=== PATIENT | female | born 1940 | race Caucasian/White ===

== ENCOUNTER 2018-05-06 10:14 | Inpatient (IN) | payer OTHER ==
[~2018-05-06 10:14] MED LIST: EPHEDrine SULFATE 50 MG/5 ML SYG; LACTATED RINGER'S 1,000 ML IV*; metroNIDAZOLE 500 MG/NS (PMX) 100 ML IVPB
[2018-05-06] MEDS ORDERED: MIDAZOLAM 1 MG/ML 2 ML INJ (13:00)
[2018-05-06] MEDS ORDERED: FENTAnyl 50 MCG/ML VIAL (13:00)
[2018-05-06] MEDS ORDERED: PROPOFOL 20 ML (13:00)
[2018-05-06] MEDS ORDERED: CEFAZOLIN 1 GM INJ (13:00)
[2018-05-06] MEDS ORDERED: metroNIDAZOLE 500 MG/NS (PMX) 100 ML IVPB ×2 (13:00→16:00)
[2018-05-06] MEDS ORDERED: ROCURONIUM 50 MG INJ ×2 (13:00→15:11)
[2018-05-06] MEDS ORDERED: ROPIVACAINE 0.2% 20 ML VIAL (13:03)
[2018-05-06] MEDS ORDERED: HYDROCORTISONE 100 MG INJ (13:21)
[2018-05-06] MEDS ORDERED: PHENYLephrine (100 MCG/ML) 10ML SYG ×2 (13:29→15:08)
[2018-05-06] MEDS ORDERED: METOCLOPRAMIDE 10 MG INJ (14:14)
[2018-05-06] MEDS ORDERED: ONDANSETRON 4 MG INJ (14:14)
[2018-05-06] MEDS ORDERED: DEXAMETHASONE 4 MG/ML 5 ML INJ (14:14)
[2018-05-06] MEDS ORDERED: FENTAnyl 50 MCG/ML VIAL IV ×2 (14:30)
[2018-05-06] MEDS ORDERED: NALBUPHINE HCL (10 MG/1 ML) INJ IV (14:30)
[2018-05-06] MEDS ORDERED: DIPHENHYDRAMINE 50 MG INJ IV ×3 (14:30→16:00)
[2018-05-06] MEDS ORDERED: morphine 2 MG INJ IV ×2 (14:30)
[2018-05-06] MEDS ORDERED: LABETALOL HCL 20MG INJ IV (14:30)
[2018-05-06] MEDS ORDERED: HYDROmorphONE 0.5 MG/0.5 ML SYG IV ×2 (14:30)
[2018-05-06] MEDS ORDERED: hydrALAzine 20 MG INJ IV (14:30)
[2018-05-06] MEDS ORDERED: ALBUMIN HUMAN 5% 250 ML IV (14:30)
[2018-05-06] MEDS ORDERED: MEPERIDINE 25 MG INJ IV (14:30)
[2018-05-06] MEDS ORDERED: HYDROmorphONE 1 MG/5 ML IV SYRINGE IV (14:30)
[2018-05-06] MEDS ORDERED: NALOXONE (0.4 MG/ML) INJ IV (14:30)
[2018-05-06] MEDS ORDERED: METOCLOPRAMIDE 10 MG INJ IV (14:30)
[2018-05-06] MEDS ORDERED: HETASTARCH 6% NACL 500 ML (15:07)
[2018-05-06] MEDS ORDERED: SUGAMMADEX SODIUM 200 MG/2 ML VIAL IV (15:34)
[2018-05-06] MEDS ORDERED: D5W-0.45 NACL + KCL 10 MEQ 1,000 ML IV (15:35)
[2018-05-06] MEDS ORDERED: ONDANSETRON 4 MG INJ IV (16:00)
[2018-05-06] MEDS ORDERED: LORAZEPAM 2 MG INJ IV (16:00)
[2018-05-06] MEDS ORDERED: CEFAZOLIN 2 GM/50 ML (PMX) 50 ML IVPB (16:00)
[2018-05-06 16:14] LABS: HEMATOCRIT 28.1 % (37.0-47.0); HEMOGLOBIN 8.9 g/dl (12.0-16.0)
[2018-05-06 16:33] LABS: ANION GAP 10 (5-13); BLOOD UREA NITROGEN 7 mg/dl (7-20); CARBON DIOXIDE 23 mmol/L (21-31); CHLORIDE 104 mmol/L (97-110); CREATININE 0.57 mg/dl (0.44-1.00); GLUCOSE 103 mg/dl (70-220); POTASSIUM 3.6 mmol/L (3.5-5.1); SODIUM 137 mmol/L (135-144)
[2018-05-06 16:36] LABS: CALCIUM 8.1 mg/dl (8.4-10.2)
[2018-05-06] MEDS: EPHEDrine SULFATE 50 MG/5 ML SYG IV (16:43)
[2018-05-06] MEDS ORDERED: BUPIVACAINE 0.25% (MPF) 30 ML INJ INJ (17:00)
[2018-05-06] MEDS: HYDROmorphONE 1 MG/5 ML IV SYRINGE IV (17:04)
[2018-05-06] MEDS: ONDANSETRON 4 MG INJ IV (17:04)
[2018-05-06] MEDS: ACETAMINOPHEN 1000MG/100ML IV 100 ML IVPB ×2 (17:14→22:47)
[2018-05-06] MEDS: D5W-0.45 NACL + KCL 20 MEQ 1,000 ML IV (18:28)
[2018-05-06] MEDS: metroNIDAZOLE 500 MG/NS (PMX) 100 ML IVPB (21:28)
[2018-05-06] MEDS: NIACIN 500 MG TAB PO (21:28)
[2018-05-06] MEDS: ESCITALOPRAM 10 MG TAB PO (23:11)
[2018-05-06] MEDS: METHYLPREDNISOLONE 125 MG INJ IV (23:15)
[2018-05-07] MEDS: CEFAZOLIN 2 GM/50 ML (PMX) 50 ML IVPB ×3 (01:45→17:36)
[2018-05-07] MEDS: ACETAMINOPHEN 1000MG/100ML IV 100 ML IVPB ×3 (03:56→16:19)
[2018-05-07] MEDS: D5W-0.45 NACL + KCL 20 MEQ 1,000 ML IV ×3 (03:58→17:36)
[2018-05-07 05:23] LABS: ADD MAN DIFF? NO
[2018-05-07 05:26] LABS: WHITE BLOOD COUNT 18.3 10^3/ul (4.8-10.8)
[2018-05-07 05:26] LABS: ABNORMAL IP MESSAGE 1; BASOPHILS % 0.1 % (0.0-2.0); HEMATOCRIT 26.5 % (37.0-47.0); HEMOGLOBIN 8.4 g/dl (12.0-16.0); LYMPHOCYTES # 0.2 10^3/ul (0.8-2.9); LYMPHOCYTES % 1.1 % (15.0-51.0); MEAN CORPUSCULAR HEMOGLOBIN 30.4 pg (29.0-33.0); MEAN CORPUSCULAR HGB CONC 31.7 g/dl (32.0-37.0); MEAN PLATELET VOLUME 9.6 fl (7.4-10.4); MONOCYTE # 0.7 10^3/ul (0.3-0.9); MONOCYTES % 3.9 % (0.0-11.0); NEUTROPHIL # 17.3 10^3/ul (1.6-7.5); NEUTROPHILS % 94.6 % (39.0-77.0); PLATELET COUNT 263 10^3/UL (140-415); RED BLOOD COUNT 2.76 10^6/ul (4.20-5.40); RED CELL DISTRIBUTION WIDTH 17.4 % (11.5-14.5)
[2018-05-07 05:43] LABS: ANION GAP 5 (5-13); BLOOD UREA NITROGEN 6 mg/dl (7-20); CALCIUM 8.1 mg/dl (8.4-10.2); CARBON DIOXIDE 24 mmol/L (21-31); CHLORIDE 104 mmol/L (97-110); CREATININE 0.53 mg/dl (0.44-1.00); GLUCOSE 178 mg/dl (70-220); POSITIVE DIFF @See below; POTASSIUM 4.1 mmol/L (3.5-5.1); SODIUM 133 mmol/L (135-144)
[2018-05-07 05:45] LABS: INR 1.02; PROTIME 13.5 Sec (11.9-14.9); PT RATIO 1.1
[2018-05-07] MEDS: PANTOPRAZOLE (EC) 40 MG TAB PO (06:07)
[2018-05-07] MEDS: metroNIDAZOLE 500 MG/NS (PMX) 100 ML IVPB ×2 (06:07→13:35)
[2018-05-07] MEDS: LEVOTHYROXINE 75 MCG TAB PO (06:07)
[2018-05-07] MEDS ORDERED: predniSONE INTENSOL (5 MG/ML PO SYG) PO (09:00)
[2018-05-07] MEDS: NIACIN 500 MG TAB PO ×2 (09:50→20:20)
[2018-05-07] MEDS: CYANOCOBALAMIN 500 MCG TAB PO (09:50)
[2018-05-07] MEDS: BUPROPION (SR) 150 MG TAB PO (09:50)
[2018-05-07] MEDS: LOSARTAN 50 MG TAB PO (09:51)
[2018-05-07] MEDS: CHOLECALCIFEROL 1,000 UNIT TAB PO (09:51)
[2018-05-07] MEDS: predniSONE 5 MG TAB PO (09:51)
[2018-05-07] MEDS: ESCITALOPRAM 10 MG TAB PO (09:51)
[2018-05-07] MEDS: LORATADINE 10 MG TAB PO (09:51)
[2018-05-07] MEDS: predniSONE 1 MG TAB PO (09:57)
[2018-05-07] MEDS: OXYCODONE/ACETAMINOPHEN (5/325) TAB PO ×2 (10:00→20:22)
[2018-05-07] MEDS: ENOXAPARIN 30 MG/0.3 ML SYG SC (13:36)
[2018-05-08 05:28] LABS: ADD MAN DIFF? NO
[2018-05-08 05:39] LABS: BASOPHILS % 0.1 % (0.0-2.0); HEMOGLOBIN 7.1 g/dl (12.0-16.0); LYMPHOCYTES # 0.8 10^3/ul (0.8-2.9); LYMPHOCYTES % 4.5 % (15.0-51.0); MEAN CORPUSCULAR HEMOGLOBIN 30.2 pg (29.0-33.0); MEAN CORPUSCULAR HGB CONC 30.9 g/dl (32.0-37.0); MEAN CORPUSCULAR VOLUME 97.9 fl (82.0-101.0); MONOCYTE # 1.5 10^3/ul (0.3-0.9); MONOCYTES % 8.1 % (0.0-11.0); NEUTROPHIL # 15.8 10^3/ul (1.6-7.5); NEUTROPHILS % 86.6 % (39.0-77.0); PLATELET COUNT 233 10^3/UL (140-415); RED BLOOD COUNT 2.35 10^6/ul (4.20-5.40); RED CELL DISTRIBUTION WIDTH 18.1 % (11.5-14.5)
[2018-05-08 05:39] LABS: WHITE BLOOD COUNT 18.2 10^3/ul (4.8-10.8)
[2018-05-08] MEDS: PANTOPRAZOLE (EC) 40 MG TAB PO (06:01)
[2018-05-08] MEDS: LEVOTHYROXINE 75 MCG TAB PO (06:01)
[2018-05-08] MEDS: ENOXAPARIN 30 MG/0.3 ML SYG SC (06:02)
[2018-05-08 06:18] LABS: ALBUMIN 2.4 g/dl (3.3-4.9); ANION GAP 5 (5-13); BLOOD UREA NITROGEN 8 mg/dl (7-20); CALCIUM 8.3 mg/dl (8.4-10.2); CARBON DIOXIDE 24 mmol/L (21-31); CHLORIDE 107 mmol/L (97-110); CREATININE 0.57 mg/dl (0.44-1.00); GLUCOSE 77 mg/dl (70-220); MAGNESIUM 1.8 mg/dl (1.7-2.5); PHOSPHORUS 2.7 mg/dl (2.5-4.9); POTASSIUM 3.8 mmol/L (3.5-5.1); SODIUM 136 mmol/L (135-144)
[2018-05-08] MEDS ORDERED: KETOROLAC 15 MG INJ IV (06:31)
[2018-05-08] MEDS: KETOROLAC 15 MG INJ IV ×2 (08:27→14:00)
[2018-05-08] MEDS: predniSONE 5 MG TAB PO (08:32)
[2018-05-08] MEDS: predniSONE 1 MG TAB PO (08:32)
[2018-05-08] MEDS: CHOLECALCIFEROL 1,000 UNIT TAB PO (08:33)
[2018-05-08] MEDS: CYANOCOBALAMIN 500 MCG TAB PO (08:33)
[2018-05-08] MEDS: BUPROPION (SR) 150 MG TAB PO (08:33)
[2018-05-08] MEDS: LORATADINE 10 MG TAB PO (08:34)
[2018-05-08] MEDS: LOSARTAN 50 MG TAB PO (08:34)
[2018-05-08] MEDS: ESCITALOPRAM 10 MG TAB PO (08:34)
[2018-05-08] MEDS: NIACIN 500 MG TAB PO ×2 (08:34→21:30)
[2018-05-08 09:34] LABS: IRON 15 ug/dl (35-150)
[2018-05-08 09:43] LABS: % IRON SATURATION 6 % SAT (22-52); TOTAL IRON BINDING CAPACITY 239 ug/dl (241-421)
[2018-05-08] MEDS: D5W-0.45 NACL + KCL 20 MEQ 1,000 ML IV (09:49)
[2018-05-08 12:37] LABS: HEMOGLOBIN 7.8 g/dl (12.0-16.0)
[2018-05-08 16:20] LABS: HEMATOCRIT 24.6 % (37.0-47.0); HEMOGLOBIN 7.7 g/dl (12.0-16.0)
[2018-05-08] MEDS: SOD FERRIC GLUC COMPLX 125 MG in SOD CHLORIDE 0.9% 100 ML IVPB (17:48)
[2018-05-09 05:46] LABS: ADD MAN DIFF? NO
[2018-05-09 05:55] LABS: ABNORMAL IP MESSAGE 1; BASOPHILS % 0.2 % (0.0-2.0); EOSINOPHILS # 0.1 10^3/ul (0.0-0.5); EOSINOPHILS % 1.2 % (0.0-7.0); HEMATOCRIT 21.7 % (37.0-47.0); LYMPHOCYTES % 8.7 % (15.0-51.0); MEAN CORPUSCULAR HEMOGLOBIN 31.2 pg (29.0-33.0); MEAN CORPUSCULAR HGB CONC 31.8 g/dl (32.0-37.0); MEAN CORPUSCULAR VOLUME 98.2 fl (82.0-101.0); MEAN PLATELET VOLUME 10.4 fl (7.4-10.4); MONOCYTE # 1.3 10^3/ul (0.3-0.9); NEUTROPHIL # 9.2 10^3/ul (1.6-7.5); NEUTROPHILS % 78.3 % (39.0-77.0); PLATELET COUNT 232 10^3/UL (140-415); RED BLOOD COUNT 2.21 10^6/ul (4.20-5.40); RED CELL DISTRIBUTION WIDTH 17.7 % (11.5-14.5)
[2018-05-09 05:55] LABS: WHITE BLOOD COUNT 11.8 10^3/ul (4.8-10.8)
[2018-05-09 06:07] LABS: ANION GAP 5 (5-13); CARBON DIOXIDE 24 mmol/L (21-31); CHLORIDE 106 mmol/L (97-110); POTASSIUM 3.6 mmol/L (3.5-5.1); SODIUM 135 mmol/L (135-144)
[2018-05-09 06:19] LABS: HEMOGLOBIN 6.9 g/dl (12.0-16.0); POSITIVE DIFF @See below
[2018-05-09] MEDS: LEVOTHYROXINE 75 MCG TAB PO (06:51)
[2018-05-09] MEDS: PANTOPRAZOLE (EC) 40 MG TAB PO (06:51)
[2018-05-09] MEDS: ENOXAPARIN 30 MG/0.3 ML SYG SC (06:53)
[2018-05-09] MEDS: FUROSEMIDE 40 MG INJ IV (09:00)
[2018-05-09 09:37] LABS: ADD MAN DIFF? NO
[2018-05-09 09:40] LABS: BASOPHILS % 0.2 % (0.0-2.0); EOSINOPHILS # 0.2 10^3/ul (0.0-0.5); EOSINOPHILS % 1.7 % (0.0-7.0); HEMATOCRIT 24.1 % (37.0-47.0); HEMOGLOBIN 7.7 g/dl (12.0-16.0); LYMPHOCYTES # 1.1 10^3/ul (0.8-2.9); LYMPHOCYTES % 10.2 % (15.0-51.0); MEAN CORPUSCULAR HEMOGLOBIN 31.4 pg (29.0-33.0); MEAN CORPUSCULAR VOLUME 98.4 fl (82.0-101.0); NEUTROPHIL # 8.6 10^3/ul (1.6-7.5); NEUTROPHILS % 78.3 % (39.0-77.0); PLATELET COUNT 258 10^3/UL (140-415); RED BLOOD COUNT 2.45 10^6/ul (4.20-5.40); RED CELL DISTRIBUTION WIDTH 17.9 % (11.5-14.5)
[2018-05-09] MEDS: NIACIN 500 MG TAB PO ×2 (09:40→21:40)
[2018-05-09] MEDS: CYANOCOBALAMIN 500 MCG TAB PO (09:40)
[2018-05-09] MEDS: ESCITALOPRAM 10 MG TAB PO (09:40)
[2018-05-09] MEDS: predniSONE 5 MG TAB PO (09:40)
[2018-05-09] MEDS: BUPROPION (SR) 150 MG TAB PO (09:40)
[2018-05-09] MEDS: CHOLECALCIFEROL 1,000 UNIT TAB PO (09:40)
[2018-05-09] MEDS: LORATADINE 10 MG TAB PO (09:41)
[2018-05-09] MEDS: predniSONE 1 MG TAB PO (09:41)
[2018-05-09] MEDS: LOSARTAN 50 MG TAB PO (09:43)
[2018-05-09] MEDS: POTASSIUM CHLORIDE (SR) 20 MEQ TAB PO (09:49)
[2018-05-09 15:20] LABS: IMMEDIATE SPIN CROSSMATCH 1 3
[2018-05-09] MEDS: SOD CHLORIDE 0.9% 250 ML IV* (15:26)
[2018-05-09] MEDS: CEPASTAT LOZENGE MT (17:55)
[2018-05-09] MEDS: OXYCODONE/ACETAMINOPHEN (5/325) TAB PO (20:53)
[2018-05-09 23:19] LABS: ADD MAN DIFF? NO
[2018-05-09 23:26] LABS: BASOPHILS % 0.1 % (0.0-2.0); EOSINOPHILS # 0.1 10^3/ul (0.0-0.5); EOSINOPHILS % 0.8 % (0.0-7.0); HEMATOCRIT 29.1 % (37.0-47.0); HEMOGLOBIN 9.5 g/dl (12.0-16.0); LYMPHOCYTES # 0.8 10^3/ul (0.8-2.9); LYMPHOCYTES % 6.5 % (15.0-51.0); MEAN CORPUSCULAR HGB CONC 32.6 g/dl (32.0-37.0); MEAN CORPUSCULAR VOLUME 95.1 fl (82.0-101.0); MEAN PLATELET VOLUME 10.3 fl (7.4-10.4); MONOCYTE # 0.4 10^3/ul (0.3-0.9); MONOCYTES % 3.3 % (0.0-11.0); NEUTROPHIL # 10.3 10^3/ul (1.6-7.5); NEUTROPHILS % 88.2 % (39.0-77.0); PLATELET COUNT 279 10^3/UL (140-415); RED BLOOD COUNT 3.06 10^6/ul (4.20-5.40); RED CELL DISTRIBUTION WIDTH 17.7 % (11.5-14.5)
[2018-05-09 23:26] LABS: WHITE BLOOD COUNT 11.7 10^3/ul (4.8-10.8)
[2018-05-10] MEDS: ONDANSETRON 4 MG INJ IV (05:11)
[2018-05-10] MEDS: ENOXAPARIN 30 MG/0.3 ML SYG SC (06:30)
[2018-05-10] MEDS: ACETAMINOPHEN 325 MG TAB PO (06:32)
[2018-05-10] MEDS: PANTOPRAZOLE (EC) 40 MG TAB PO (06:35)
[2018-05-10] MEDS: LEVOTHYROXINE 75 MCG TAB PO (06:35)
[2018-05-10 08:50] LABS: ADD MAN DIFF? NO
[2018-05-10 08:53] LABS: ABNORMAL IP MESSAGE 1; BASOPHILS % 0.2 % (0.0-2.0); EOSINOPHILS # 0.1 10^3/ul (0.0-0.5); HEMATOCRIT 27.8 % (37.0-47.0); HEMOGLOBIN 9.2 g/dl (12.0-16.0); LYMPHOCYTES # 0.5 10^3/ul (0.8-2.9); LYMPHOCYTES % 3.6 % (15.0-51.0); MEAN CORPUSCULAR HGB CONC 33.1 g/dl (32.0-37.0); MEAN CORPUSCULAR VOLUME 93.6 fl (82.0-101.0); MEAN PLATELET VOLUME 10.2 fl (7.4-10.4); MONOCYTE # 0.7 10^3/ul (0.3-0.9); MONOCYTES % 5.4 % (0.0-11.0); NEUTROPHIL # 11.2 10^3/ul (1.6-7.5); NEUTROPHILS % 88.9 % (39.0-77.0); PLATELET COUNT 289 10^3/UL (140-415); RED BLOOD COUNT 2.97 10^6/ul (4.20-5.40); RED CELL DISTRIBUTION WIDTH 17.3 % (11.5-14.5)
[2018-05-10 08:53] LABS: WHITE BLOOD COUNT 12.7 10^3/ul (4.8-10.8)
[2018-05-10 08:56] LABS: POSITIVE DIFF @See below
[2018-05-10] MEDS: BUPROPION (SR) 150 MG TAB PO (09:10)
[2018-05-10] MEDS: FERROUS SULFATE (EC) 325 MG TAB PO (09:10)
[2018-05-10] MEDS: ESCITALOPRAM 10 MG TAB PO (09:11)
[2018-05-10] MEDS: CHOLECALCIFEROL 1,000 UNIT TAB PO (09:11)
[2018-05-10] MEDS: LORATADINE 10 MG TAB PO (09:11)
[2018-05-10] MEDS: CYANOCOBALAMIN 500 MCG TAB PO (09:11)
[2018-05-10] MEDS: LOSARTAN 50 MG TAB PO (09:13)
[2018-05-10] MEDS: predniSONE 1 MG TAB PO (09:13)
[2018-05-10] MEDS: NIACIN 500 MG TAB PO ×2 (09:15→21:00)
[2018-05-10] MEDS: predniSONE 5 MG TAB PO (09:25)
[2018-05-10 09:33] LABS: ANION GAP 5 (5-13); BLOOD UREA NITROGEN 5 mg/dl (7-20); CALCIUM 8.6 mg/dl (8.4-10.2); CARBON DIOXIDE 30 mmol/L (21-31); CHLORIDE 98 mmol/L (97-110); CREATININE 0.54 mg/dl (0.44-1.00); GLUCOSE 119 mg/dl (70-220); POTASSIUM 3.8 mmol/L (3.5-5.1); SODIUM 133 mmol/L (135-144)
[2018-05-10] MEDS: CEPASTAT LOZENGE MT (19:53)
[2018-05-10] MEDS: METOCLOPRAMIDE 10 MG INJ IV (20:12)
[2018-05-10] MEDS: D5-0.2 NACL + KCL 20 MEQ 1,000 ML IV (20:54)
[2018-05-11] MEDS: METOCLOPRAMIDE 10 MG INJ IV ×2 (00:26→06:07)
[2018-05-11] MEDS: ONDANSETRON 4 MG INJ IV (03:02)
[2018-05-11] MEDS: LEVOTHYROXINE 75 MCG TAB PO (05:35)
[2018-05-11] MEDS: PANTOPRAZOLE (EC) 40 MG TAB PO (05:35)
[2018-05-11 06:02] LABS: ADD MAN DIFF? NO
[2018-05-11] MEDS: ENOXAPARIN 30 MG/0.3 ML SYG SC (06:09)
[2018-05-11 06:14] LABS: WHITE BLOOD COUNT 11.4 10^3/ul (4.8-10.8)
[2018-05-11 06:14] LABS: ABNORMAL IP MESSAGE 1; BASOPHILS % 0.2 % (0.0-2.0); EOSINOPHILS # 0.2 10^3/ul (0.0-0.5); EOSINOPHILS % 1.8 % (0.0-7.0); HEMATOCRIT 28.3 % (37.0-47.0); HEMOGLOBIN 9.2 g/dl (12.0-16.0); LYMPHOCYTES # 0.4 10^3/ul (0.8-2.9); LYMPHOCYTES % 3.6 % (15.0-51.0); MEAN CORPUSCULAR HEMOGLOBIN 31.1 pg (29.0-33.0); MEAN CORPUSCULAR HGB CONC 32.5 g/dl (32.0-37.0); MEAN CORPUSCULAR VOLUME 95.6 fl (82.0-101.0); MEAN PLATELET VOLUME 10.4 fl (7.4-10.4); MONOCYTE # 0.8 10^3/ul (0.3-0.9); MONOCYTES % 6.9 % (0.0-11.0); NEUTROPHIL # 9.9 10^3/ul (1.6-7.5); NEUTROPHILS % 86.9 % (39.0-77.0); PLATELET COUNT 296 10^3/UL (140-415); RED BLOOD COUNT 2.96 10^6/ul (4.20-5.40); RED CELL DISTRIBUTION WIDTH 17.2 % (11.5-14.5)
[2018-05-11 06:20] LABS: POSITIVE DIFF @See below
[2018-05-11 06:33] LABS: ANION GAP 7 (5-13); BLOOD UREA NITROGEN 7 mg/dl (7-20); CALCIUM 8.7 mg/dl (8.4-10.2); CARBON DIOXIDE 30 mmol/L (21-31); CHLORIDE 95 mmol/L (97-110); CREATININE 0.55 mg/dl (0.44-1.00); GLUCOSE 117 mg/dl (70-220); POTASSIUM 4.4 mmol/L (3.5-5.1); SODIUM 132 mmol/L (135-144)
[2018-05-11] MEDS: LOSARTAN 50 MG TAB PO (09:38)
[2018-05-11] MEDS: BUPROPION (SR) 150 MG TAB PO (09:38)
[2018-05-11] MEDS: SOD CHLORIDE 0.9% 500 ML IV (10:24)
[2018-05-11] MEDS: OXYCODONE/ACETAMINOPHEN (5/325) TAB PO (10:28)
[2018-05-11] MEDS ORDERED: KETOROLAC 15 MG INJ IV (11:30)
[2018-05-11] MEDS: D5W-0.45 NACL + KCL 20 MEQ 1,000 ML IV ×2 (12:02→21:10)
[2018-05-11] MEDS: ESCITALOPRAM 10 MG TAB PO (12:03)
[2018-05-11] MEDS: LORATADINE 10 MG TAB PO (12:03)
[2018-05-11] MEDS: NIACIN 500 MG TAB PO ×2 (16:37→21:06)
[2018-05-11] MEDS: CHOLECALCIFEROL 1,000 UNIT TAB PO (16:38)
[2018-05-11] MEDS: CYANOCOBALAMIN 500 MCG TAB PO (16:38)
[2018-05-11] MEDS: predniSONE 1 MG TAB PO (16:38)
[2018-05-11] MEDS: predniSONE 5 MG TAB PO (16:38)
[2018-05-11 20:13] LABS: ADD UMIC YES; UR ASCORBIC ACID NEGATIVE (NEGATIVE); UR BACTERIA FEW /HPF (NONE SEEN); UR BILIRUBIN (Dip) NEGATIVE (NEGATIVE); UR BLOOD (Dip) 2+ mg/dL (NEGATIVE); UR CALCIUM OXALATE CRYSTAL MANY /HPF (NONE SEEN); UR CLARITY SLIGHTLY CLOUDY (CLEAR); UR COLOR AMBER (YELLOW); UR GLUCOSE (Dip) NEGATIVE (NEGATIVE); UR KETONES (Dip) NEGATIVE (NEGATIVE); UR LEUKOCYTE ESTERASE (Dip) NEGATIVE Leu/ul (NEGATIVE); UR MUCUS MODERATE /HPF (NONE SEEN); UR NITRITE (Dip) NEGATIVE (NEGATIVE); UR RBC 18 /HPF (0-5); UR SPECIFIC GRAVITY (Dip) 1.021 (1.003-1.030); UR SQUAMOUS EPITHELIAL CELL FEW /HPF (FEW); UR TOTAL PROTEIN (Dip) NEGATIVE (NEGATIVE); UR UROBILINOGEN (Dip) NEGATIVE (NEGATIVE); UR WBC 11 /HPF (0-5)
[2018-05-12] MEDS: PANTOPRAZOLE (EC) 40 MG TAB PO (00:36)
[2018-05-12] MEDS: ALBUTEROL 0.083% (NEB) 2.5 MG/3 ML AMP HHN ×5 (04:11→20:19)
[2018-05-12] MEDS: ONDANSETRON 4 MG INJ IV ×2 (04:21→10:26)
[2018-05-12 05:13] LABS: ABNORMAL IP MESSAGE 1; ADD MAN DIFF? NO; BASOPHILS % 0.1 % (0.0-2.0); EOSINOPHILS # 0.2 10^3/ul (0.0-0.5); EOSINOPHILS % 2.8 % (0.0-7.0); LYMPHOCYTES # 0.5 10^3/ul (0.8-2.9); LYMPHOCYTES % 5.7 % (15.0-51.0); MEAN CORPUSCULAR HEMOGLOBIN 30.4 pg (29.0-33.0); MEAN CORPUSCULAR HGB CONC 32.1 g/dl (32.0-37.0); MEAN CORPUSCULAR VOLUME 94.6 fl (82.0-101.0); MONOCYTE # 0.8 10^3/ul (0.3-0.9); MONOCYTES % 8.8 % (0.0-11.0); NEUTROPHILS % 81.3 % (39.0-77.0); PLATELET COUNT 310 10^3/UL (140-415); RED BLOOD COUNT 2.96 10^6/ul (4.20-5.40); RED CELL DISTRIBUTION WIDTH 16.8 % (11.5-14.5)
[2018-05-12 05:13] LABS: WHITE BLOOD COUNT 8.6 10^3/ul (4.8-10.8)
[2018-05-12 05:28] LABS: POSITIVE DIFF @See below
[2018-05-12 05:33] LABS: ANION GAP 8 (5-13); BLOOD UREA NITROGEN 5 mg/dl (7-20); CALCIUM 8.4 mg/dl (8.4-10.2); CARBON DIOXIDE 27 mmol/L (21-31); CHLORIDE 94 mmol/L (97-110); CREATININE 0.61 mg/dl (0.44-1.00); GLUCOSE 128 mg/dl (70-220); POTASSIUM 4.2 mmol/L (3.5-5.1); SODIUM 129 mmol/L (135-144)
[2018-05-12] MEDS: LEVOTHYROXINE 75 MCG TAB PO (05:51)
[2018-05-12] MEDS: D5W-0.45 NACL + KCL 20 MEQ 1,000 ML IV (05:52)
[2018-05-12] MEDS: ENOXAPARIN 30 MG/0.3 ML SYG SC (05:54)
[2018-05-12] MEDS: CYANOCOBALAMIN 500 MCG TAB PO (09:00)
[2018-05-12] MEDS: NIACIN 500 MG TAB PO ×2 (09:00→20:32)
[2018-05-12] MEDS: CHOLECALCIFEROL 1,000 UNIT TAB PO (09:00)
[2018-05-12] MEDS: SOD CHLORIDE 0.9% 250 ML IV (09:03)
[2018-05-12] MEDS: predniSONE 1 MG TAB PO (09:03)
[2018-05-12] MEDS: predniSONE 5 MG TAB PO (09:04)
[2018-05-12] MEDS: BUPROPION (SR) 150 MG TAB PO (09:04)
[2018-05-12] MEDS: LORATADINE 10 MG TAB PO (09:05)
[2018-05-12] MEDS: ESCITALOPRAM 10 MG TAB PO (09:05)
[2018-05-12] MEDS: LOSARTAN 50 MG TAB PO (09:11)
[2018-05-12] MEDS: D5-NS + KCL 20 MEQ 1,000 ML IV ×2 (09:35→22:50)
[2018-05-13] MEDS: ALBUTEROL 0.083% (NEB) 2.5 MG/3 ML AMP HHN ×4 (01:00→21:19)
[2018-05-13 05:18] LABS: ADD MAN DIFF? NO
[2018-05-13 05:35] LABS: WHITE BLOOD COUNT 11.6 10^3/ul (4.8-10.8)
[2018-05-13 05:35] LABS: BASOPHILS % 0.1 % (0.0-2.0); EOSINOPHILS # 0.3 10^3/ul (0.0-0.5); EOSINOPHILS % 2.3 % (0.0-7.0); HEMATOCRIT 24.7 % (37.0-47.0); LYMPHOCYTES # 0.6 10^3/ul (0.8-2.9); LYMPHOCYTES % 5.2 % (15.0-51.0); MEAN CORPUSCULAR HEMOGLOBIN 30.4 pg (29.0-33.0); MEAN CORPUSCULAR HGB CONC 32.4 g/dl (32.0-37.0); MEAN CORPUSCULAR VOLUME 93.9 fl (82.0-101.0); MEAN PLATELET VOLUME 10.3 fl (7.4-10.4); MONOCYTE # 1.1 10^3/ul (0.3-0.9); MONOCYTES % 9.8 % (0.0-11.0); NEUTROPHIL # 9.5 10^3/ul (1.6-7.5); NEUTROPHILS % 81.5 % (39.0-77.0); PLATELET COUNT 303 10^3/UL (140-415); RED BLOOD COUNT 2.63 10^6/ul (4.20-5.40); RED CELL DISTRIBUTION WIDTH 16.5 % (11.5-14.5)
[2018-05-13 05:52] LABS: ANION GAP 8 (5-13); BLOOD UREA NITROGEN 6 mg/dl (7-20); CALCIUM 8.3 mg/dl (8.4-10.2); CARBON DIOXIDE 26 mmol/L (21-31); CHLORIDE 98 mmol/L (97-110); CREATININE 0.54 mg/dl (0.44-1.00); GLUCOSE 103 mg/dl (70-220); POTASSIUM 3.9 mmol/L (3.5-5.1); SODIUM 132 mmol/L (135-144)
[2018-05-13] MEDS: D5-NS + KCL 20 MEQ 1,000 ML IV (06:57)
[2018-05-13] MEDS: LEVOTHYROXINE 75 MCG TAB PO (06:58)
[2018-05-13] MEDS: PANTOPRAZOLE (EC) 40 MG TAB PO (06:59)
[2018-05-13] MEDS: ENOXAPARIN 30 MG/0.3 ML SYG SC (07:03)
[2018-05-13] MEDS: NIACIN 500 MG TAB PO ×2 (09:08→20:39)
[2018-05-13] MEDS: CHOLECALCIFEROL 1,000 UNIT TAB PO (09:08)
[2018-05-13] MEDS: LORATADINE 10 MG TAB PO (09:08)
[2018-05-13] MEDS: BUPROPION (SR) 150 MG TAB PO (09:08)
[2018-05-13] MEDS: predniSONE 5 MG TAB PO (09:08)
[2018-05-13] MEDS: ESCITALOPRAM 10 MG TAB PO (09:08)
[2018-05-13] MEDS: LOSARTAN 50 MG TAB PO (09:08)
[2018-05-13] MEDS: predniSONE 1 MG TAB PO (09:08)
[2018-05-13] MEDS: CYANOCOBALAMIN 500 MCG TAB PO (09:12)
[2018-05-13] MEDS: DIATR MEGLU/DIATRIZOATE SODIUM 120 ML BTL (09:13)
[2018-05-13] MEDS: ONDANSETRON 4 MG INJ IV ×2 (12:29→18:52)
[2018-05-13] MEDS: HYDROmorphONE 0.5 MG/0.5 ML SYG IV ×2 (12:29→18:52)
[2018-05-13 15:07] LABS: HEMATOCRIT 26.3 % (37.0-47.0); HEMOGLOBIN 8.4 g/dl (12.0-16.0)
[2018-05-14] MEDS: ALBUTEROL 0.083% (NEB) 2.5 MG/3 ML AMP HHN ×2 (02:02→08:10)
[2018-05-14 05:13] LABS: ADD MAN DIFF? NO
[2018-05-14 05:16] LABS: WHITE BLOOD COUNT 11.3 10^3/ul (4.8-10.8)
[2018-05-14 05:16] LABS: BASOPHILS % 0.4 % (0.0-2.0); EOSINOPHILS # 0.3 10^3/ul (0.0-0.5); EOSINOPHILS % 2.9 % (0.0-7.0); HEMOGLOBIN 7.9 g/dl (12.0-16.0); LYMPHOCYTES # 1.1 10^3/ul (0.8-2.9); LYMPHOCYTES % 9.8 % (15.0-51.0); MEAN CORPUSCULAR HGB CONC 31.6 g/dl (32.0-37.0); MEAN PLATELET VOLUME 10.3 fl (7.4-10.4); MONOCYTE # 1.3 10^3/ul (0.3-0.9); MONOCYTES % 11.3 % (0.0-11.0); NEUTROPHIL # 8.3 10^3/ul (1.6-7.5); NEUTROPHILS % 73.8 % (39.0-77.0); PLATELET COUNT 336 10^3/UL (140-415); RED BLOOD COUNT 2.55 10^6/ul (4.20-5.40); RED CELL DISTRIBUTION WIDTH 16.9 % (11.5-14.5)
[2018-05-14 05:46] LABS: ANION GAP 13 (5-13); BLOOD UREA NITROGEN 8 mg/dl (7-20); CALCIUM 8.9 mg/dl (8.4-10.2); CARBON DIOXIDE 24 mmol/L (21-31); CHLORIDE 100 mmol/L (97-110); CREATININE 0.72 mg/dl (0.44-1.00); GLUCOSE 51 mg/dl (70-220); POTASSIUM 3.7 mmol/L (3.5-5.1); SODIUM 137 mmol/L (135-144)
[2018-05-14 05:57] LABS: PHOSPHORUS 3.8 mg/dl (2.5-4.9)
[2018-05-14 05:57] LABS: MAGNESIUM 1.6 mg/dl (1.7-2.5)
[2018-05-14] MEDS: PANTOPRAZOLE (EC) 40 MG TAB PO (06:09)
[2018-05-14] MEDS: LEVOTHYROXINE 75 MCG TAB PO (06:10)
[2018-05-14] MEDS: ENOXAPARIN 30 MG/0.3 ML SYG SC (06:11)
[2018-05-14] MEDS: CYANOCOBALAMIN 500 MCG TAB PO (09:00)
[2018-05-14] MEDS: predniSONE 1 MG TAB PO (10:38)
[2018-05-14] MEDS: predniSONE 5 MG TAB PO (10:38)
[2018-05-14] MEDS: LOSARTAN 50 MG TAB PO (10:39)
[2018-05-14] MEDS: NIACIN 500 MG TAB PO ×2 (10:39→20:19)
[2018-05-14] MEDS: BUPROPION (SR) 150 MG TAB PO (10:39)
[2018-05-14] MEDS: CHOLECALCIFEROL 1,000 UNIT TAB PO (10:39)
[2018-05-14] MEDS: LORATADINE 10 MG TAB PO (10:40)
[2018-05-14] MEDS: ESCITALOPRAM 10 MG TAB PO (10:40)
[2018-05-14] MEDS: D5-NS + KCL 20 MEQ 1,000 ML IV ×2 (10:52→22:20)
[2018-05-14] MEDS: SUCRALFATE (100 MG/ML) 10ML CUP PO ×3 (13:25→20:19)
[2018-05-14] MEDS: ALBUTEROL/IPRATROPIUM (NEB) 3 ML AMP HHN (14:18)
[2018-05-14 14:24] LABS: HEMATOCRIT 27.8 % (37.0-47.0); HEMOGLOBIN 8.9 g/dl (12.0-16.0)
[2018-05-14] MEDS: ONDANSETRON 4 MG INJ IV (15:26)
[2018-05-14] MEDS: MAGNESIUM OXIDE 400 MG TAB PO (15:45)
[2018-05-14] MEDS: LIDOCAINE/MYLANTA 40 ML BTL PO (17:29)
[2018-05-14] MEDS ORDERED: TPN 1,000 ML IV (17:52)
[2018-05-14 19:18] LABS: ALANINE AMINOTRANSFERASE 19 IU/L (13-69); ALBUMIN 2.9 g/dl (3.3-4.9); ALBUMIN/GLOBULIN RATIO 1.07; ALKALINE PHOSPHATASE 61 IU/L (42-121); ANION GAP 10 (5-13); ASPARTATE AMINO TRANSFERASE 14 IU/L (15-46); BILIRUBIN,INDIRECT 0.1 mg/dl (0-1.1); BILIRUBIN,TOTAL 0.1 mg/dl (0.2-1.3); BLOOD UREA NITROGEN 5 mg/dl (7-20); CALCIUM 8.5 mg/dl (8.4-10.2); CARBON DIOXIDE 23 mmol/L (21-31); CHLORIDE 100 mmol/L (97-110); CREATININE 0.54 mg/dl (0.44-1.00); GLUCOSE 117 mg/dl (70-220); MAGNESIUM 1.5 mg/dl (1.7-2.5); PHOSPHORUS 2.9 mg/dl (2.5-4.9); POTASSIUM 3.8 mmol/L (3.5-5.1); SODIUM 133 mmol/L (135-144); TOTAL PROTEIN 5.6 g/dl (6.1-8.1); TRIGLYCERIDES 90 mg/dl (0-149)
[2018-05-14 19:25] LABS: PREALBUMIN 7.6 mg/dl (17.6-36.0)
[2018-05-14] MEDS: BUDESONIDE (NEB) 0.5MG/2ML AMP HHN (20:57)
[2018-05-14] MEDS ORDERED: ACCU-CHEK XX (21:00)
[2018-05-14] MEDS: MAGNESIUM SULFATE 2 GM/50 ML 50 ML IVPB (21:23)
[2018-05-15] MEDS: LEVALBUTEROL (NEB) 0.63 MG/3 ML AMP HHN ×2 (00:03→08:55)
[2018-05-15] MEDS: D5-NS + KCL 20 MEQ 1,000 ML IV (03:06)
[2018-05-15 05:27] LABS: ADD MAN DIFF? NO
[2018-05-15 05:32] LABS: WHITE BLOOD COUNT 15.4 10^3/ul (4.8-10.8)
[2018-05-15 05:33] LABS: BASOPHILS % 0.3 % (0.0-2.0); EOSINOPHILS # 0.2 10^3/ul (0.0-0.5); HEMATOCRIT 26.2 % (37.0-47.0); HEMOGLOBIN 8.3 g/dl (12.0-16.0); LYMPHOCYTES # 0.8 10^3/ul (0.8-2.9); LYMPHOCYTES % 4.9 % (15.0-51.0); MEAN CORPUSCULAR HEMOGLOBIN 30.6 pg (29.0-33.0); MEAN CORPUSCULAR HGB CONC 31.7 g/dl (32.0-37.0); MEAN CORPUSCULAR VOLUME 96.7 fl (82.0-101.0); MONOCYTE # 1.3 10^3/ul (0.3-0.9); MONOCYTES % 8.7 % (0.0-11.0); NEUTROPHIL # 12.8 10^3/ul (1.6-7.5); PLATELET COUNT 385 10^3/UL (140-415); RED BLOOD COUNT 2.71 10^6/ul (4.20-5.40); RED CELL DISTRIBUTION WIDTH 16.8 % (11.5-14.5)
[2018-05-15] MEDS: LEVOTHYROXINE 75 MCG TAB PO (06:03)
[2018-05-15] MEDS: PANTOPRAZOLE (EC) 40 MG TAB PO (06:03)
[2018-05-15 06:10] LABS: ALANINE AMINOTRANSFERASE 16 IU/L (13-69); ALBUMIN 2.7 g/dl (3.3-4.9); ALBUMIN/GLOBULIN RATIO 1.03; ALKALINE PHOSPHATASE 55 IU/L (42-121); ANION GAP 8 (5-13); ASPARTATE AMINO TRANSFERASE 12 IU/L (15-46); BILIRUBIN,INDIRECT 0.1 mg/dl (0-1.1); BILIRUBIN,TOTAL 0.1 mg/dl (0.2-1.3); BLOOD UREA NITROGEN 5 mg/dl (7-20); CALCIUM 8.5 mg/dl (8.4-10.2); CARBON DIOXIDE 26 mmol/L (21-31); CHLORIDE 101 mmol/L (97-110); CREATININE 0.59 mg/dl (0.44-1.00); GLUCOSE 110 mg/dl (70-220); POTASSIUM 3.8 mmol/L (3.5-5.1); SODIUM 135 mmol/L (135-144); TOTAL PROTEIN 5.3 g/dl (6.1-8.1)
[2018-05-15 06:16] LABS: PHOSPHORUS 2.7 mg/dl (2.5-4.9)
[2018-05-15] MEDS: LORATADINE 10 MG TAB PO (08:30)
[2018-05-15] MEDS: NIACIN 500 MG TAB PO ×2 (08:30→22:24)
[2018-05-15] MEDS: CHOLECALCIFEROL 1,000 UNIT TAB PO (08:31)
[2018-05-15] MEDS: BUPROPION (SR) 150 MG TAB PO (08:31)
[2018-05-15] MEDS: predniSONE 5 MG TAB PO (08:31)
[2018-05-15] MEDS: predniSONE 1 MG TAB PO (08:32)
[2018-05-15] MEDS: ESCITALOPRAM 10 MG TAB PO (08:33)
[2018-05-15] MEDS: CYANOCOBALAMIN 500 MCG TAB PO (08:33)
[2018-05-15] MEDS: LOSARTAN 50 MG TAB PO (08:33)
[2018-05-15] MEDS: SUCRALFATE (100 MG/ML) 10ML CUP PO ×4 (08:33→22:24)
[2018-05-15] MEDS: BUDESONIDE (NEB) 0.5MG/2ML AMP HHN (08:55)
[2018-05-15] MEDS: POTASSIUM CHLORIDE 10 MEQ in SOD CHLORIDE 0.9% 1,000 ML IV (11:39)
[2018-05-15] MEDS: OXYCODONE/ACETAMINOPHEN (5/325) TAB PO (14:09)
[2018-05-16 06:10] LABS: ADD MAN DIFF? NO
[2018-05-16 06:17] LABS: ABNORMAL IP MESSAGE 1; BASOPHILS % 0.2 % (0.0-2.0); EOSINOPHILS # 0.2 10^3/ul (0.0-0.5); EOSINOPHILS % 1.1 % (0.0-7.0); HEMATOCRIT 25.9 % (37.0-47.0); HEMOGLOBIN 8.3 g/dl (12.0-16.0); LYMPHOCYTES % 4.7 % (15.0-51.0); MEAN CORPUSCULAR HEMOGLOBIN 30.6 pg (29.0-33.0); MEAN CORPUSCULAR VOLUME 95.6 fl (82.0-101.0); MEAN PLATELET VOLUME 10.3 fl (7.4-10.4); MONOCYTE # 1.7 10^3/ul (0.3-0.9); MONOCYTES % 8.2 % (0.0-11.0); NEUTROPHIL # 16.9 10^3/ul (1.6-7.5); NEUTROPHILS % 83.3 % (39.0-77.0); PLATELET COUNT 411 10^3/UL (140-415); RED BLOOD COUNT 2.71 10^6/ul (4.20-5.40)
[2018-05-16 06:17] LABS: WHITE BLOOD COUNT 20.3 10^3/ul (4.8-10.8)
[2018-05-16] MEDS: LEVOTHYROXINE 75 MCG TAB PO (06:22)
[2018-05-16] MEDS: PANTOPRAZOLE (EC) 40 MG TAB PO (06:22)
[2018-05-16 06:25] LABS: POSITIVE DIFF @See below
[2018-05-16] MEDS: ENOXAPARIN 30 MG/0.3 ML SYG SC (06:40)
[2018-05-16 07:02] LABS: ANION GAP 12 (5-13); BLOOD UREA NITROGEN 8 mg/dl (7-20); CALCIUM 8.4 mg/dl (8.4-10.2); CARBON DIOXIDE 23 mmol/L (21-31); CHLORIDE 99 mmol/L (97-110); CREATININE 0.66 mg/dl (0.44-1.00); GLUCOSE 70 mg/dl (70-220); MAGNESIUM 1.9 mg/dl (1.7-2.5); PHOSPHORUS 2.2 mg/dl (2.5-4.9); POTASSIUM 3.7 mmol/L (3.5-5.1); SODIUM 134 mmol/L (135-144)
[2018-05-16] MEDS: LORATADINE 10 MG TAB PO (08:16)
[2018-05-16] MEDS: predniSONE 5 MG TAB PO (08:16)
[2018-05-16] MEDS: SUCRALFATE (100 MG/ML) 10ML CUP PO ×4 (08:16→20:44)
[2018-05-16] MEDS: NIACIN 500 MG TAB PO ×2 (08:18→20:44)
[2018-05-16] MEDS: CHOLECALCIFEROL 1,000 UNIT TAB PO (08:18)
[2018-05-16] MEDS: predniSONE 1 MG TAB PO (08:18)
[2018-05-16] MEDS: ESCITALOPRAM 10 MG TAB PO (08:19)
[2018-05-16] MEDS: BUPROPION (SR) 150 MG TAB PO (08:19)
[2018-05-16] MEDS: CYANOCOBALAMIN 500 MCG TAB PO (08:19)
[2018-05-16] MEDS: LOSARTAN 50 MG TAB PO (08:20)
[2018-05-16] MEDS: IOHEXOL 14.3 MG(I)/ML (ADULT) BTL PO (12:45)
[2018-05-16] MEDS: PIPER-TAZO 3.375 GM IV (PMX) 100 ML IVPB ×2 (14:32→17:53)
[2018-05-16] MEDS: SOD CHLORIDE 0.9% 100 ML (15:15)
[2018-05-16] MEDS: IOHEXOL 300MG/ML 150 ML BTL (15:15)
[2018-05-16 16:03] LABS: ADD UMIC YES; UR ASCORBIC ACID NEGATIVE (NEGATIVE); UR BACTERIA FEW /HPF (NONE SEEN); UR BILIRUBIN (Dip) NEGATIVE (NEGATIVE); UR BLOOD (Dip) 2+ mg/dL (NEGATIVE); UR CALCIUM OXALATE CRYSTAL FEW /HPF (NONE SEEN); UR CLARITY CLOUDY (CLEAR); UR COLOR AMBER (YELLOW); UR GLUCOSE (Dip) NEGATIVE (NEGATIVE); UR KETONES (Dip) TRACE mg/dL (NEGATIVE); UR LEUKOCYTE ESTERASE (Dip) 3+ Leu/ul (NEGATIVE); UR MUCUS MODERATE /HPF (NONE SEEN); UR NITRITE (Dip) NEGATIVE (NEGATIVE); UR NONSQUAMOUS EPITHELIAL CELL 2 /HPF (NONE SEEN); UR RBC 61 /HPF (0-5); UR SPECIFIC GRAVITY (Dip) 1.026 (1.003-1.030); UR TOTAL PROTEIN (Dip) 1+ mg/dl (NEGATIVE); UR UROBILINOGEN (Dip) NEGATIVE (NEGATIVE); UR WBC > 182 /HPF (0-5)
[2018-05-16] MEDS: POTASSIUM CHLORIDE (SR) 20 MEQ TAB PO (17:52)
[2018-05-16] MEDS: MAGNESIUM SULFATE 2 GM/50 ML 50 ML IVPB (18:30)
[2018-05-16] MEDS: METOPROLOL 25 MG TAB PO (20:45)
[2018-05-16] MEDS: MAGNESIUM HYDROXIDE 30ML CUP PO (22:46)
[2018-05-17] MEDS: OXYCODONE/ACETAMINOPHEN (5/325) TAB PO ×2 (00:43→20:30)
[2018-05-17] MEDS: ONDANSETRON 4 MG INJ IV (01:15)
[2018-05-17] MEDS: METOCLOPRAMIDE 10 MG INJ IV (01:15)
[2018-05-17 05:24] LABS: ADD MAN DIFF? NO
[2018-05-17 05:27] LABS: WHITE BLOOD COUNT 17.6 10^3/ul (4.8-10.8)
[2018-05-17 05:27] LABS: BASOPHIL # 0.1 10^3/ul (0.0-0.1); BASOPHILS % 0.3 % (0.0-2.0); EOSINOPHILS # 0.2 10^3/ul (0.0-0.5); EOSINOPHILS % 1.3 % (0.0-7.0); HEMATOCRIT 26.1 % (37.0-47.0); HEMOGLOBIN 8.5 g/dl (12.0-16.0); LYMPHOCYTES % 5.6 % (15.0-51.0); MEAN CORPUSCULAR HEMOGLOBIN 30.8 pg (29.0-33.0); MEAN CORPUSCULAR HGB CONC 32.6 g/dl (32.0-37.0); MEAN CORPUSCULAR VOLUME 94.6 fl (82.0-101.0); MEAN PLATELET VOLUME 9.8 fl (7.4-10.4); MONOCYTE # 1.1 10^3/ul (0.3-0.9); MONOCYTES % 6.5 % (0.0-11.0); NEUTROPHIL # 14.7 10^3/ul (1.6-7.5); NEUTROPHILS % 83.4 % (39.0-77.0); PLATELET COUNT 454 10^3/UL (140-415); RED BLOOD COUNT 2.76 10^6/ul (4.20-5.40); RED CELL DISTRIBUTION WIDTH 16.5 % (11.5-14.5)
[2018-05-17 05:52] LABS: MAGNESIUM 1.8 mg/dl (1.7-2.5)
[2018-05-17 06:09] LABS: ANION GAP 6 (5-13); BLOOD UREA NITROGEN 9 mg/dl (7-20); CALCIUM 8.1 mg/dl (8.4-10.2); CARBON DIOXIDE 25 mmol/L (21-31); CHLORIDE 102 mmol/L (97-110); CREATININE 0.61 mg/dl (0.44-1.00); GLUCOSE 97 mg/dl (70-220); POTASSIUM 3.8 mmol/L (3.5-5.1); SODIUM 133 mmol/L (135-144)
[2018-05-17] MEDS: PANTOPRAZOLE (EC) 40 MG TAB PO (07:44)
[2018-05-17] MEDS: PIPER-TAZO 3.375 GM IV (PMX) 100 ML IVPB ×4 (07:44→17:34)
[2018-05-17] MEDS: LEVOTHYROXINE 75 MCG TAB PO (07:44)
[2018-05-17] MEDS: ENOXAPARIN 30 MG/0.3 ML SYG SC (07:50)
[2018-05-17] MEDS: NIACIN 500 MG TAB PO ×2 (08:20→20:30)
[2018-05-17] MEDS: CHOLECALCIFEROL 1,000 UNIT TAB PO (08:21)
[2018-05-17] MEDS: CYANOCOBALAMIN 500 MCG TAB PO (08:21)
[2018-05-17] MEDS: predniSONE 5 MG TAB PO (08:21)
[2018-05-17] MEDS: SUCRALFATE (100 MG/ML) 10ML CUP PO ×4 (08:21→20:31)
[2018-05-17] MEDS: predniSONE 1 MG TAB PO (08:21)
[2018-05-17] MEDS: BUPROPION (SR) 150 MG TAB PO (08:22)
[2018-05-17] MEDS: ESCITALOPRAM 10 MG TAB PO (08:22)
[2018-05-17] MEDS: LORATADINE 10 MG TAB PO (08:22)
[2018-05-17] MEDS: LOSARTAN 50 MG TAB PO (08:22)
[2018-05-17] MEDS: METOPROLOL 25 MG TAB PO ×2 (08:22→20:31)
[2018-05-17] MEDS: POTASSIUM CHLORIDE (SR) 20 MEQ TAB PO (12:22)
[2018-05-17] MEDS: DOCUSATE SODIUM 100 MG CAP PO ×2 (12:34→20:30)
[2018-05-17] MEDS: MAGNESIUM SULFATE 3 GM in DEXTROSE 5% 100 ML IVPB (14:39)
[2018-05-18] MEDS: PIPER-TAZO 3.375 GM IV (PMX) 100 ML IVPB ×4 (00:08→17:53)
[2018-05-18 05:24] LABS: ABNORMAL IP MESSAGE 1; HEMOGLOBIN 8.6 g/dl (12.0-16.0); MEAN CORPUSCULAR HEMOGLOBIN 30.3 pg (29.0-33.0); MEAN CORPUSCULAR HGB CONC 31.9 g/dl (32.0-37.0); MEAN CORPUSCULAR VOLUME 95.1 fl (82.0-101.0); MEAN PLATELET VOLUME 10.1 fl (7.4-10.4); PLATELET COUNT 485 10^3/UL (140-415); RED BLOOD COUNT 2.84 10^6/ul (4.20-5.40); RED CELL DISTRIBUTION WIDTH 16.7 % (11.5-14.5)
[2018-05-18 05:24] LABS: WHITE BLOOD COUNT 13.3 10^3/ul (4.8-10.8)
[2018-05-18 05:49] LABS: POSITIVE DIFF @See below
[2018-05-18 05:50] LABS: ADD MAN DIFF? YES
[2018-05-18 06:15] LABS: ANION GAP 7 (5-13)
[2018-05-18] MEDS: LEVOTHYROXINE 75 MCG TAB PO (06:16)
[2018-05-18] MEDS: PANTOPRAZOLE (EC) 40 MG TAB PO (06:16)
[2018-05-18 06:19] LABS: BLOOD UREA NITROGEN 10 mg/dl (7-20); CALCIUM 7.9 mg/dl (8.4-10.2); CARBON DIOXIDE 26 mmol/L (21-31); CHLORIDE 99 mmol/L (97-110); GLUCOSE 88 mg/dl (70-220); MAGNESIUM 2.3 mg/dl (1.7-2.5); PHOSPHORUS 2.2 mg/dl (2.5-4.9); POTASSIUM 4.4 mmol/L (3.5-5.1); SODIUM 132 mmol/L (135-144)
[2018-05-18] MEDS: ENOXAPARIN 30 MG/0.3 ML SYG SC (06:33)
[2018-05-18 07:20] LABS: ANISOCYTOSIS 1+ (0-0); BAND NEUTROPHILS #M 0.3 10^3/ul (0.0-0.6); BAND NEUTROPHILS % (M) 3 % (0-4); BURR CELLS 1+ (0-0); EOSINOPHILS % (M) 4 % (0-7); HYPOCHROMASIA 2+ (0-0); LYMPHOCYTES #M 0.7 10^3/ul (0.8-2.9); LYMPHOCYTES % (M) 6 % (15-51); METAMYELOCYTES #M 0.2 10^3/ul (0.0-0.0); METAMYELOCYTES %M 2 % (0-0); MONOCYTE #M 0.2 10^3/ul (0.3-0.9); MONOCYTES % (M) 2 % (0-11); MYELOCYTES #M 0.1 10^3/ul (0.0-0.0); MYELOCYTES % (M) 1 % (0-0); PLATELET ESTIMATE NORMAL; POIKILOCYTOSIS 1+ (0-0); POLYCHROMASIA 3+ (0-0); REACTIVE LYMPHOCYTES #M 0.5 10^3/ul (0.0-0.0); REACTIVE LYMPHOCYTES% (M) 4 % (0-0); SEG NEUT #M 10.4 10^3/ul (1.6-7.5); SEGMENTED NEUTROPHILS (M) % 78 % (39-77); SMUDGE%M 3 % (0-0); TARGET CELLS 1+ (0-0)
[2018-05-18] MEDS: SUCRALFATE (100 MG/ML) 10ML CUP PO ×4 (08:12→20:46)
[2018-05-18] MEDS: DOCUSATE SODIUM 100 MG CAP PO ×2 (08:13→20:46)
[2018-05-18] MEDS: LOSARTAN 50 MG TAB PO (08:13)
[2018-05-18] MEDS: LORATADINE 10 MG TAB PO (08:13)
[2018-05-18] MEDS: ESCITALOPRAM 10 MG TAB PO (08:14)
[2018-05-18] MEDS: NIACIN 500 MG TAB PO ×2 (08:14→20:46)
[2018-05-18] MEDS: METOPROLOL 25 MG TAB PO ×2 (08:14→20:45)
[2018-05-18] MEDS: predniSONE 1 MG TAB PO (08:15)
[2018-05-18] MEDS: predniSONE 5 MG TAB PO (08:16)
[2018-05-18] MEDS: CHOLECALCIFEROL 1,000 UNIT TAB PO (08:16)
[2018-05-18] MEDS: BUPROPION (SR) 150 MG TAB PO (08:16)
[2018-05-18] MEDS: CYANOCOBALAMIN 500 MCG TAB PO (08:16)
[2018-05-18] MEDS ORDERED: SENNA/DOCUSATE NA (8.6MG/50MG) TAB PO (10:30)
[2018-05-18] MEDS: NEUTRA-PHOS 250 MG PACKET PO (11:10)
[2018-05-18] MEDS: OXYCODONE/ACETAMINOPHEN (5/325) TAB PO (13:52)
[2018-05-18] MEDS: ACETAMINOPHEN 325 MG TAB PO (22:22)
[2018-05-19] MEDS: PIPER-TAZO 3.375 GM IV (PMX) 100 ML IVPB ×3 (00:25→12:20)
[2018-05-19] MEDS: ACETAMINOPHEN 325 MG TAB PO ×2 (02:34→21:35)
[2018-05-19 06:16] LABS: WHITE BLOOD COUNT 13.1 10^3/ul (4.8-10.8)
[2018-05-19 06:16] LABS: ABNORMAL IP MESSAGE 1; HEMOGLOBIN 8.5 g/dl (12.0-16.0); MEAN CORPUSCULAR HEMOGLOBIN 30.1 pg (29.0-33.0); MEAN CORPUSCULAR HGB CONC 31.5 g/dl (32.0-37.0); MEAN CORPUSCULAR VOLUME 95.7 fl (82.0-101.0); MEAN PLATELET VOLUME 10.1 fl (7.4-10.4); PLATELET COUNT 509 10^3/UL (140-415); RED BLOOD COUNT 2.82 10^6/ul (4.20-5.40)
[2018-05-19 06:24] LABS: ADD MAN DIFF? YES; POSITIVE DIFF @See below
[2018-05-19 06:36] LABS: ANION GAP 8 (5-13); BLOOD UREA NITROGEN 9 mg/dl (7-20); CALCIUM 8.2 mg/dl (8.4-10.2); CARBON DIOXIDE 26 mmol/L (21-31); CHLORIDE 100 mmol/L (97-110); GLUCOSE 99 mg/dl (70-220); PHOSPHORUS 2.6 mg/dl (2.5-4.9); SODIUM 134 mmol/L (135-144)
[2018-05-19] MEDS: PANTOPRAZOLE (EC) 40 MG TAB PO (06:38)
[2018-05-19] MEDS: LEVOTHYROXINE 75 MCG TAB PO (06:38)
[2018-05-19] MEDS: METOPROLOL 25 MG TAB PO ×2 (06:39→20:13)
[2018-05-19] MEDS: ENOXAPARIN 30 MG/0.3 ML SYG SC (06:48)
[2018-05-19 07:50] LABS: ANISOCYTOSIS 3+ (0-0); BAND NEUTROPHILS #M 0.3 10^3/ul (0.0-0.6); BAND NEUTROPHILS % (M) 3 % (0-4); BURR CELLS 1+ (0-0); EOSINOPHILS % (M) 1 % (0-7); GIANT THROMBO% (M) 1 % (0-0); HYPOCHROMASIA 1+ (0-0); LYMPHOCYTES #M 2.3 10^3/ul (0.8-2.9); LYMPHOCYTES % (M) 18 % (15-51); MONOCYTES % (M) 8 % (0-11); MYELOCYTES #M 0.2 10^3/ul (0.0-0.0); MYELOCYTES % (M) 2 % (0-0); PLATELET ESTIMATE INCREASED; POIKILOCYTOSIS 1+ (0-0); POLYCHROMASIA 3+ (0-0); PROMYELOCYTES #M 0.1 10^3/ul (0-0); PROMYELOCYTES % (M) 1 % (0-0); SEG NEUT #M 8.8 10^3/ul (1.6-7.5); SEGMENTED NEUTROPHILS (M) % 67 % (39-77); SMUDGE%M 16 % (0-0); TARGET CELLS 1+ (0-0)
[2018-05-19] MEDS: predniSONE 5 MG TAB PO (08:21)
[2018-05-19] MEDS: LOSARTAN 50 MG TAB PO (08:21)
[2018-05-19] MEDS: NIACIN 500 MG TAB PO ×2 (08:21→20:12)
[2018-05-19] MEDS: predniSONE 1 MG TAB PO (08:22)
[2018-05-19] MEDS: LORATADINE 10 MG TAB PO (08:22)
[2018-05-19] MEDS: CHOLECALCIFEROL 1,000 UNIT TAB PO (08:22)
[2018-05-19] MEDS: CYANOCOBALAMIN 500 MCG TAB PO (08:22)
[2018-05-19] MEDS: DOCUSATE SODIUM 100 MG CAP PO ×2 (08:22→20:12)
[2018-05-19] MEDS: ESCITALOPRAM 10 MG TAB PO (08:23)
[2018-05-19] MEDS: SUCRALFATE (100 MG/ML) 10ML CUP PO ×4 (08:23→20:26)
[2018-05-19] MEDS: BUPROPION (SR) 150 MG TAB PO (08:23)
[2018-05-19] MEDS: MAGNESIUM HYDROXIDE 30ML CUP PO (15:14)
[2018-05-19] MEDS: FOSFOMYCIN 3 GM PACKET PO (15:14)
[2018-05-19] MEDS: AMOXICILLIN/CLAV 875 MG TAB PO (20:12)
[2018-05-20] MEDS: ACETAMINOPHEN 325 MG TAB PO (04:43)
[2018-05-20] MEDS: LEVOTHYROXINE 75 MCG TAB PO (06:15)
[2018-05-20 06:16] LABS: WHITE BLOOD COUNT 11.9 10^3/ul (4.8-10.8)
[2018-05-20 06:16] LABS: ABNORMAL IP MESSAGE 1; HEMATOCRIT 28.9 % (37.0-47.0); HEMOGLOBIN 9.1 g/dl (12.0-16.0); MEAN CORPUSCULAR HEMOGLOBIN 30.3 pg (29.0-33.0); MEAN CORPUSCULAR HGB CONC 31.5 g/dl (32.0-37.0); MEAN CORPUSCULAR VOLUME 96.3 fl (82.0-101.0); MEAN PLATELET VOLUME 9.6 fl (7.4-10.4); PLATELET COUNT 525 10^3/UL (140-415); RED CELL DISTRIBUTION WIDTH 17.2 % (11.5-14.5)
[2018-05-20] MEDS: PANTOPRAZOLE (EC) 40 MG TAB PO (06:16)
[2018-05-20] MEDS: ENOXAPARIN 30 MG/0.3 ML SYG SC (06:22)
[2018-05-20 06:24] LABS: ADD MAN DIFF? YES; POSITIVE DIFF @See below
[2018-05-20 06:37] LABS: ANION GAP 6 (5-13); BLOOD UREA NITROGEN 9 mg/dl (7-20); CALCIUM 8.8 mg/dl (8.4-10.2); CARBON DIOXIDE 31 mmol/L (21-31); CHLORIDE 96 mmol/L (97-110); CREATININE 0.65 mg/dl (0.44-1.00); GLUCOSE 97 mg/dl (70-220); MAGNESIUM 1.8 mg/dl (1.7-2.5); PHOSPHORUS 2.7 mg/dl (2.5-4.9); POTASSIUM 4.3 mmol/L (3.5-5.1); SODIUM 133 mmol/L (135-144)
[2018-05-20 07:51] LABS: ANISOCYTOSIS 1+ (0-0); BAND NEUTROPHILS #M 0.3 10^3/ul (0.0-0.6); BAND NEUTROPHILS % (M) 3 % (0-4); EOSINOPHILS % (M) 1 % (0-7); LYMPHOCYTES #M 2.1 10^3/ul (0.8-2.9); LYMPHOCYTES % (M) 18 % (15-51); METAMYELOCYTES #M 0.1 10^3/ul (0.0-0.0); METAMYELOCYTES %M 1 % (0-0); MONOCYTE #M 0.5 10^3/ul (0.3-0.9); MONOCYTES % (M) 5 % (0-11); MYELOCYTES #M 0.3 10^3/ul (0.0-0.0); MYELOCYTES % (M) 3 % (0-0); OVALOCYTES 1+ (0-0); PLATELET ESTIMATE INCREASED; POLYCHROMASIA 1+ (0-0); SEG NEUT #M 8.2 10^3/ul (1.6-7.5); SEGMENTED NEUTROPHILS (M) % 69 % (39-77); SMUDGE%M 9 % (0-0)
[2018-05-20] MEDS: NIACIN 500 MG TAB PO ×2 (08:42→20:29)
[2018-05-20] MEDS: predniSONE 5 MG TAB PO (08:44)
[2018-05-20] MEDS: CYANOCOBALAMIN 500 MCG TAB PO (08:44)
[2018-05-20] MEDS: METOPROLOL 25 MG TAB PO ×2 (08:44→20:29)
[2018-05-20] MEDS: predniSONE 1 MG TAB PO (08:44)
[2018-05-20] MEDS: AMOXICILLIN/CLAV 875 MG TAB PO ×2 (08:44→20:29)
[2018-05-20] MEDS: BUPROPION (SR) 150 MG TAB PO (08:44)
[2018-05-20] MEDS: LORATADINE 10 MG TAB PO (08:45)
[2018-05-20] MEDS: SUCRALFATE (100 MG/ML) 10ML CUP PO ×4 (08:45→20:30)
[2018-05-20] MEDS: ESCITALOPRAM 10 MG TAB PO (08:45)
[2018-05-20] MEDS: LOSARTAN 50 MG TAB PO (08:45)
[2018-05-20] MEDS: CHOLECALCIFEROL 1,000 UNIT TAB PO (08:45)
[2018-05-20] MEDS: DOCUSATE SODIUM 100 MG CAP PO ×2 (09:00→20:29)
[2018-05-20] MEDS: MAGNESIUM SULFATE 2 GM/50 ML 50 ML IVPB (11:47)
[2018-05-21] MEDS: LEVOTHYROXINE 75 MCG TAB PO (06:12)
[2018-05-21] MEDS: PANTOPRAZOLE (EC) 40 MG TAB PO (06:12)
[2018-05-21 06:20] LABS: PREALBUMIN 15.8 mg/dl (17.6-36.0)
[2018-05-21] MEDS: ENOXAPARIN 30 MG/0.3 ML SYG SC (06:44)
[2018-05-21] MEDS: SUCRALFATE (100 MG/ML) 10ML CUP PO ×2 (07:36→12:23)
[2018-05-21] MEDS: ESCITALOPRAM 10 MG TAB PO (08:22)
[2018-05-21] MEDS: CHOLECALCIFEROL 1,000 UNIT TAB PO (08:22)
[2018-05-21] MEDS: CYANOCOBALAMIN 500 MCG TAB PO (08:22)
[2018-05-21] MEDS: AMOXICILLIN/CLAV 875 MG TAB PO (08:23)
[2018-05-21] MEDS: LORATADINE 10 MG TAB PO (08:23)
[2018-05-21] MEDS: METOPROLOL 25 MG TAB PO (08:23)
[2018-05-21] MEDS: DOCUSATE SODIUM 100 MG CAP PO (08:24)
[2018-05-21] MEDS: NIACIN 500 MG TAB PO (08:24)
[2018-05-21] MEDS: BUPROPION (SR) 150 MG TAB PO (08:25)
[2018-05-21] MEDS: LOSARTAN 50 MG TAB PO (08:25)
[2018-05-21] MEDS: predniSONE 5 MG TAB PO (08:35)
[2018-05-21] MEDS: predniSONE 1 MG TAB PO (08:40)
[2018-05-21 10:25] LABS: ADD MAN DIFF? NO
[2018-05-21 10:27] LABS: BASOPHIL # 0.1 10^3/ul (0.0-0.1); BASOPHILS % 0.7 % (0.0-2.0); EOSINOPHILS # 0.2 10^3/ul (0.0-0.5); EOSINOPHILS % 1.4 % (0.0-7.0); HEMATOCRIT 32.8 % (37.0-47.0); HEMOGLOBIN 10.4 g/dl (12.0-16.0); LYMPHOCYTES # 1.5 10^3/ul (0.8-2.9); MEAN CORPUSCULAR HEMOGLOBIN 31.1 pg (29.0-33.0); MEAN CORPUSCULAR HGB CONC 31.7 g/dl (32.0-37.0); MEAN CORPUSCULAR VOLUME 98.2 fl (82.0-101.0); MEAN PLATELET VOLUME 9.6 fl (7.4-10.4); MONOCYTE # 1.5 10^3/ul (0.3-0.9); NEUTROPHIL # 10.8 10^3/ul (1.6-7.5); NEUTROPHILS % 73.3 % (39.0-77.0); PLATELET COUNT 494 10^3/UL (140-415); RED BLOOD COUNT 3.34 10^6/ul (4.20-5.40); RED CELL DISTRIBUTION WIDTH 17.9 % (11.5-14.5)
[2018-05-21 10:27] LABS: WHITE BLOOD COUNT 14.7 10^3/ul (4.8-10.8)
[2018-05-21 10:44] LABS: ALBUMIN 3.2 g/dl (3.3-4.9); ANION GAP 11 (5-13); BLOOD UREA NITROGEN 10 mg/dl (7-20); CALCIUM 8.8 mg/dl (8.4-10.2); CARBON DIOXIDE 27 mmol/L (21-31); CHLORIDE 96 mmol/L (97-110); CREATININE 0.56 mg/dl (0.44-1.00); GLUCOSE 87 mg/dl (70-220); PHOSPHORUS 2.9 mg/dl (2.5-4.9); POTASSIUM 3.9 mmol/L (3.5-5.1); SODIUM 134 mmol/L (135-144)
== END 2018-05-21 15:30 | DRG 330 ==
LOC: REC 10:14 → 6WM 05-14 14:50 → MS1 18:02
PROC: 0DBN4ZZ Excision of Sigmoid Colon, Percutaneous Endoscopic Approach (ICD-10-PCS; principal; 2018-05-06 12:30)
PROC: 0DBP4ZZ Excision of Rectum, Percutaneous Endoscopic Approach (ICD-10-PCS; 2018-05-06 12:30)
PROC: 0WUF47Z Supplement Abdominal Wall with Autologous Tissue Substitute, Percutaneous Endoscopic Approach (ICD-10-PCS; 2018-05-06 12:30)
PROC: 0DJD8ZZ Inspection of Lower Intestinal Tract, Via Natural or Artificial Opening Endoscopic (ICD-10-PCS; 2018-05-06 12:30)
PROC: 30233N1 Transfusion of Nonautologous Red Blood Cells into Peripheral Vein, Percutaneous Approach (ICD-10-PCS; 2018-05-06 13:07)
DX: K57.32 Diverticulitis of large intestine without perforation or abscess without bleeding (principal); K56.699 Other intestinal obstruction unspecified as to partial versus complete obstruction; L12.0 Bullous pemphigoid; N39.0 Urinary tract infection, site not specified; D62 Acute posthemorrhagic anemia; E87.1 Hypo-osmolality and hyponatremia; I47.1 Supraventricular tachycardia; E03.9 Hypothyroidism, unspecified; M06.9 Rheumatoid arthritis, unspecified; F32.9 Major depressive disorder, single episode, unspecified; I10 Essential (primary) hypertension; H91.91 Unspecified hearing loss, right ear; K21.9 Gastro-esophageal reflux disease without esophagitis; J30.9 Allergic rhinitis, unspecified; R11.2 Nausea with vomiting, unspecified; E83.42 Hypomagnesemia; Z79.52 Long term (current) use of systemic steroids; Z79.899 Other long term (current) drug therapy
CPT/HCPCS: 36430; 71045; 71046; 74018; 74019; 74177; 74250; 80048; 80051; 80053; 80069; 81001; 82962; 83540; 83735; 84100; 84134; 84478; 85014; 85018; 85025; 85610; 86850; 86900; 86901; 86920; 87040; 87086; 88307; 93005; 94640; 94664; 97110; 97116; 97161; 97164; 97530